=== PATIENT | male | born 1955 | race African-American/Black ===

== ENCOUNTER 2017-12-29 12:43 | Emergency (ER) | payer OTHER ==
[2017-12-29] MEDS ORDERED: NORMAL SALINE 1000 ML 1,000 ML IV ONE ×2 (13:51→15:11)
--- NOTE | 2017-12-29 14:08 | ER Document Report ---
ED Blood Sugar Problem - General Chief Complaint: High Blood Sugar Stated Complaint: BLOOD SUGAR ISSUE Time Seen by Provider: 12/29/17 13:51 Information source: Patient Notes: Patient is a 62-year-old male who presents today stating that he has been out of his insulin for around 1 week. He states that he has had some lightheadedness and dizziness over this week. He denies any fevers or vomiting. He denies any chest pain or shortness of breath. Denies any weakness or numbness to the arms or legs. TRAVEL OUTSIDE OF THE [place] IN LAST 30 DAYS: No - HPI Onset: This morning - See above Onset/Duration: Gradual Quality of pain: No pain Severity: Mild Pain Level: Denies Associated symptoms: Other - See above Similar symptoms previously: No Recently seen / treated by doctor: No - Related Data Allergies/Adverse Reactions: No Known Allergies Allergy (Unverified 12/29/17 12:52) Past Medical History - Social History Smoking Status: Unknown if Ever Smoked Cigarette use (# per day): No Chew tobacco use (# tins/day): No Smoking Education Provided: No Family History: Reviewed & Not Pertinent Review of Systems - Review of Systems Constitutional: denies: Fever EENT: denies: Eye discharge, Blurred vision, Nose discharge Cardiovascular: denies: Chest pain, Palpitations Respiratory: denies: Short of breath Gastrointestinal: denies: Vomiting Genitourinary: denies: Dysuria Musculoskeletal: denies: Leg swelling Skin: Other - no hives. denies: Rash Neurological/Psychological: Other - no slurred speech -: Yes All other systems reviewed and negative Physical Exam - Vital signs Vitals: Temp Pulse Resp BP Pulse Ox 98.2 F 85 18 131/69 H 98 12/29/17 12:57 12/29/17 12:57 12/29/17 12:57 12/29/17 12:57 12/29/17 12:57 Notes: Reviewed vital signs and nursing note as charted by RN. CONSTITUTIONAL: Alert and oriented and responds appropriately to questions. Well -appearing; well-nourished HEAD: Normocephalic; atraumatic EYES: PERRL ENT: Normal nose; no rhinorrhea; moist mucous membranes; pharynx without lesions noted NECK: Supple without meningismus; non-tender CARD: Regular rate and rhythm; no murmurs RESP: Normal chest excursion without splinting or tachypnea; breath sounds clear and equal bilaterally ABD/GI: Normal bowel sounds; non-distended; soft, non-tender BACK: The back appears normal and is non-tender to palpation EXT: Normal ROM in all joints; non-tender to palpation; no edema SKIN: No acute lesions noted NEURO: CN 2-12 intact; 5/5 bilateral upper and lower extremity strength with sensation intact to light touch; normal cerebellar motion PSYCH: The patient's mood and manner are appropriate. Grooming and personal hygiene are appropriate. Course - Re-evaluation Re-evalutation: 12/29/17 14:08 Given the history and physical examination I will order basic labs, electrolytes , venous blood gas, provide a liter of fluid. Vital signs are stable and the patient has no focal neurological deficits. 12/29/17 15:12 Labs as recorded. Normal anion gap. Elevated glucose. Patient appears to have a low white blood cell count with a neutrophil absolute count of 1.5. This does not appear to be different than the laboratory values drawn previously around 7 years ago. Patient still denies any pain, weakness or numbness. 12/29/17 17:04 Patient's labs as recorded. Repeat Accu-Chek as recorded. Patient denies any lightheadedness or dizziness at this time. I have provided a small dose of insulin here in the department. I have had social work see and talk to the patient and the patient states that he is able to be seen by the [facility] care [facility] tomorrow. He states that he would be able to get his insulin at that time. [facility] but I believe that this is a reasonable plan. Patient will be discharged home with strict return precautions. - Vital Signs Vital signs: Temp Pulse Resp BP Pulse Ox 98.2 F 85 18 131/69 H 98 12/29/17 12:57 12/29/17 12:57 12/29/17 12:57 12/29/17 12:57 12/29/17 12:57 - Laboratory Result Diagrams: 12/29/17 14:00 12/29/17 14:00 Laboratory results interpreted by me: 12/29/17 12/29/17 14:00 14:00 WBC 2.7 L Absolute Neutrophils 1.5 L Sodium 134.5 L Chloride 94 L Glucose 481 H* Discharge - Discharge Clinical Impression: Hyperglycemia Condition: Good Disposition: HOME, SELF-CARE Additional Instructions: Please make sure that you stay away from very sugary foods as we have discussed. Please follow-up tomorrow at the [facility]. Return here if you are not able to be seen by the [facility] clinic. Come back immediately with any lightheadedness, dizziness, chest pain, weakness or numbness, or any other acute problems. Referrals: PILAR CAMPBELL MD [Primary Care Provider] - Follow up as needed
[2017-12-29 14:34] LABS: ABSOLUTE MONOCYTES (AUTO) 0.2 10^3/uL (0.1-1.4); ABSOLUTE NEUT (AUTO) 1.5 10^3/uL (1.7-8.2); BASOPHILS % (AUTO) 0.7 % (0-2); EOSINOPHILS % (AUTO) 0.5 % (0-6); HEMATOCRIT 44.6 % (37.9-51.0); HEMOGLOBIN 15.1 g/dL (13.5-17.0); LYMPHOCYTES % (AUTO) 37.2 % (13-45); MEAN CORPUSCULAR HEMOGLOBIN 30.7 pg (27.0-33.4); MEAN CORPUSCULAR VOLUME 91 fl (80-97); MONOCYTES % (AUTO) 5.9 % (3-13); PLATELET COUNT 258 10^3/uL (150-450); RED BLOOD COUNT 4.92 10^6/uL (4.35-5.55); RED CELL DISTRIBUTION WIDTH 12.1 % (11.5-14.0); SEGMENTED NEUTROPHILS % (AUTO) 55.7 % (42-78); TOTAL CELLS COUNTED % (AUTO) 100 %; WHITE BLOOD COUNT 2.7 10^3/uL (4.0-10.5)
[2017-12-29 14:41] LABS: VENOUS BLOOD BASE EXCESS -3.3 mmol/L; VENOUS BLOOD HCO3 23.5 mmol/L (20-32); VENOUS BLOOD PCO2 47.4 mmHg (35-63); VENOUS BLOOD PH 7.31 (7.30-7.42)
[2017-12-29 15:00] LABS: ANION GAP 12 (5-19); BLOOD UREA NITROGEN 10 mg/dL (7-20); CALCIUM 9.2 mg/dL (8.4-10.2); CARBON DIOXIDE 29 mmol/L (22-30); CHLORIDE 94 mmol/L (98-107); POTASSIUM 4.4 mmol/L (3.6-5.0); SODIUM 134.5 mmol/L (137-145)
[2017-12-29 15:10] LABS: GLUCOSE 481 mg/dL (75-110)
[2017-12-29] MEDS ORDERED: INSULIN REG, HUMAN 100 UNIT/ML 3 ML VIAL (PYX) IV ONE (15:11)
[2017-12-29 17:40] VITALS: BP 139/83
== END 2017-12-29 17:41 | disposition home or self-care (01) ==
LOC: ER 12:43
DX: R73.9 Hyperglycemia, unspecified (principal); R42 Dizziness and giddiness; Z79.4 Long term (current) use of insulin
CPT/HCPCS: 99285; 96360; 36415; 82962; 85025; 80048; 82803; J1815; J7030; 96361

== ENCOUNTER 2017-12-29 17:55 | Observation (INO) | payer OTHER ==
--- NOTE | 2017-12-29 18:19 | ER Document Report ---
ED General - General Stated Complaint: SYNCOPAL EPISODE Time Seen by Provider: 12/29/17 18:04 Information source: Patient Notes: Patient is a 62-year-old male that was recently discharged from this facility after the patient presented with an elevated blood glucose after being out of his insulin medications for around 1 week. Patient states he was waiting for his ride outside in the grass when he "passed out". Patient denies any headache , neck pain, chest pain, abdominal pain, weakness or numbness. Patient had no complaints of similar symptoms on the prior visit. Patient states he feels "back to normal". TRAVEL OUTSIDE OF THE [place] IN LAST 30 DAYS: No - HPI Onset: Other - See above Onset/Duration: Sudden Quality of pain: No pain Severity: Mild Associated symptoms: Other - See above Exacerbated by: Denies Relieved by: Denies Similar symptoms previously: No Recently seen / treated by doctor: Yes - Related Data Allergies/Adverse Reactions: No Known Allergies Allergy (Unverified 12/29/17 12:52) Past Medical History - Social History Smoking Status: Unknown if Ever Smoked Family History: Reviewed & Not Pertinent Endocrine Medical History: Reports: Hx Diabetes Mellitus Type 2 Renal/ Medical History: Denies: Hx Peritoneal Dialysis Review of Systems - Review of Systems Constitutional: denies: Fever EENT: denies: Eye discharge, Nose discharge Respiratory: denies: Short of breath Gastrointestinal: denies: Vomiting Genitourinary: denies: Dysuria Musculoskeletal: denies: Leg swelling Skin: Other - no hives. denies: Rash Neurological/Psychological: Other - no slurred speech -: Yes All other systems reviewed and negative Physical Exam - Vital signs Notes: Reviewed vital signs and nursing note as charted by RN. CONSTITUTIONAL: Alert and oriented and responds appropriately to questions. Well -appearing; well-nourished HEAD: Normocephalic; atraumatic EYES: PERRL; full extraocular range of motion ENT: Normal nose; no rhinorrhea; moist mucous membranes; pharynx without lesions noted NECK: Supple without meningismus; non-tender; no carotid bruits; no cervical lymphadenopathy, no masses CARD: Regular rate and rhythm; no murmurs; symmetric distal pulses RESP: Normal chest excursion without splinting or tachypnea; breath sounds clear and equal bilaterally ABD/GI: Normal bowel sounds; non-distended; soft, non-tender; no abdominal bruits; no palpable organomegaly or masses BACK: The back appears normal and is non-tender to palpation EXT: Normal ROM in all joints; non-tender to palpation; no edema SKIN: No acute lesions noted NEURO: CN 2-12 intact; 5/5 bilateral upper and lower extremity strength with sensation intact to light touch. No nystagmus. Normal finger to nose bilaterally PSYCH: The patient's mood and manner are appropriate. Grooming and personal hygiene are appropriate. Course - Re-evaluation Re-evalutation: 12/29/17 18:19 Given the above history and physical examination I will order CT scan of the head as well as an EKG and place the patient on the monitor. I have ordered a troponin level and orthostatics. Patient had a complete laboratory profile very recently and I do not believe the basic labs and chemistry need to be reordered again at this time. 12/29/17 18:25 On reexamination of the patient the patient does state he felt some "vertigo- like symptoms". He states he did not lose consciousness outside which is felt to the ground. He denies any tinnitus, blurry vision, or headache. EKG shows a heart of 59, normal sinus rhythm, normal axis, no ST elevation or depression. 12/29/17 18:39 CT scan of the head shows no acute abnormalities. Troponin and orthostatics are pending. Patient still denies any symptoms at this time. Discharge - Discharge Clinical Impression: Hyperglycemia Syncope Qualifiers: Syncope type: unspecified Qualified Code(s): R55 - Syncope and collapse Condition: Fair Disposition: ADMITTED OBSERVATION Admitting Provider: Hospitalist Unit Admitted: Telemetry Referrals: PILAR CAMPBELL MD [Primary Care Provider] - Follow up as needed
--- NOTE | 2017-12-29 18:25 | RADIOLOGY REPORT (SQ) ---
EXAM DESCRIPTION: CT HEAD WITHOUT COMPLETED DATE/TIME: 12/29/2017 6:14 pm REASON FOR STUDY: syncopal episode COMPARISON: None. TECHNIQUE: Axial images acquired through the brain without intravenous contrast. Images reviewed wi th bone, brain and subdural windows. Images stored on PACS. All CT scanners at this facility use dose modulation, iterative reconstruction, and/or weight based d osing when appropriate to reduce radiation dose to as low as reasonably achievable (ALARA). [facility]: Dose Right [facility]: CareDose [facility]: Dose Right [facility]: Teradose 4D [facility]: Smart [employer] RADIATION DOSE: CT Rad equipment meets quality standard of care and radiation dose reduction techniq ues were employed. CTDIvol: 53.2 mGy. DLP: 1017 mGy-cm. mGy. LIMITATIONS: None. FINDINGS: VENTRICLES: Normal size and contour. CEREBRUM: No masses. No hemorrhage. No midline shift. No evidence for acute infarction. Normal gra y/white matter differentiation. No areas of low density in the white matter. CEREBELLUM: No masses. No hemorrhage. No alteration of density. No evidence for acute infarction. EXTRAAXIAL SPACES: No fluid collections. No masses. ORBITS AND GLOBE: No intra- or extraconal masses. Normal contour of globe without masses. CALVARIUM: No fracture. PARANASAL SINUSES: No fluid or mucosal thickening. SOFT TISSUES: No mass or hematoma. OTHER: No other significant finding. IMPRESSION: No significant intracranial abnormalities were identified. Findings as noted above. EVIDENCE OF ACUTE STROKE: NO. COMMENT: Quality ID # [id number]: Final reports with documentation of one or more dose reduction techniques (e.g., Automated exposure control, adjustment of the mA and/or kV according to patient size, use of iterative reconstruction technique) TECHNICAL DOCUMENTATION: JOB ID: [id number] [employer]- All Rights Reserved Reading location - IP/workstation name: [email or web address]
[2017-12-29] MEDS ORDERED: ACETAMINOPHEN 325 MG TABLET PO PRN (19:26)
[2017-12-29] MEDS ORDERED: DEXTROSE 50%-WATER 25 GM/50 ML DISP.SYRIN IV PRN ×2 (19:26)
[2017-12-29] MEDS ORDERED: GLUCAGON,HUMAN RECOMB 1 MG INJ IM PRN (19:26)
[2017-12-29] MEDS ORDERED: DEXTROSE 40% GEL 15 GM TUBE PO PRN ×2 (19:26)
[2017-12-29] MEDS ORDERED: MAGNESIUM HYDROXIDE SUSP 30 ML UDCUP PO PRN (19:26)
--- NOTE | 2017-12-29 20:11 | EKG REPORT ---
SEVERITY:- NORMAL ECG - SINUS RHYTHM : Confirmed by: Anay Levine 29-Dec-2017 20:10:28
--- NOTE | 2017-12-29 22:00 | RADIOLOGY REPORT (SQ) ---
EXAM DESCRIPTION: MR BRAIN WITHOUT IV CONTRAST COMPLETED DATE/TME: 12/29/2017 00:00 CLINICAL HISTORY: 62 years, Male, syncope COMPARISON: EXAM DESCRIPTION: CLINICAL HISTORY: syncope COMPARISON: None TECHNIQUE: Multiplanar multisequence imaging of the brain including the intravenous administration of contrast. FINDINGS: No acute ischemia. There is no evidence of acute mass, mass effect, midline shift or hemorrhage. No focal abnormal extra-axial fluid collection is seen. The ventricles, basal cisterns and extra-axial fluid spaces are normal in size and configuration. Brain parenchymal signal is normal. IMPRESSION: No acute abnormalities. TECHNIQUE: Images stored on PACS. LIMITATIONS: None. FINDINGS: IMPRESSION: 2010 [facility] [employer]- All Rights Reserved
[2017-12-29] MEDS ORDERED: INSULIN GLARGINE,HUM.REC.ANLOG 1,000 UNIT/10 ML UNIT SUBCUT ONE (23:00)
[2017-12-29] MEDS: HEPARIN SOD (PORCINE) 5,000 UNIT/ML 1 ML SYRINGE SUBCUT SCH (23:04)
[2017-12-29] MEDS: ATORVASTATIN CALCIUM 80 MG TABLET PO SCH (23:04)
[2017-12-30 01:09] LABS: CREATINE KINASE MB 0.84 ng/mL (<4.55)
[2017-12-30 01:15] LABS: TROPONIN I < 0.012 ng/mL
--- NOTE | 2017-12-30 03:32 | PDOC H&P ---
History of Present Illness Admission Date/PCP: 12/29/17 19:35 PILAR CAMPBELL MD Patient complains of: Syncope History of Present Illness: JAE DEVI is a 62 year old male with past medical history of insulin-dependent diabetes, dyslipidemia and GERD. Patient presents to the emergency room earlier in the day with complaints of dj vu and uncontrolled hyperglycemia after running out of insulin. He receives insulin for blood sugar of 480 reducing it to 280 without evidence of dehydration or acidosis he is discharged. Upon ambulating from the hospital campus he has a sensation of dj vu prompting him to sit up on the ground with an sensation of weakness. He denies blackout, loss of consciousness, headache, focal weakness, difficulty with speech, nausea vomiting, diaphoresis, palpitations, chest pain or shortness of breath. In the emergency room he has an unremarkable workup but he is referred to the hospitalist for observation. Patient denies recent changes in medications. Past Medical History Cardiac Medical History: Reports: Hyperlipidema Endocrine Medical History: Reports: Diabetes Mellitus Type 2 GI Medical History: Reports: Gastroesophageal Reflux Disease Social History Information Source: Patient Smoking Status: Current Every Day Smoker Cigarettes Packs Per Day: 0.1 Number of Years Smokin Last Time Smoked: 12/29/17 Frequency of Alcohol Use: Social Hx Recreational Drug Use: Yes Drugs: Marijuana Hx Prescription Drug Abuse: No - Advance Directive Resuscitation Status: Full Code Family History Family History: Hypertension. denies: CAD, CVA Parental Family History Reviewed: Yes Children Family History Reviewed: Yes Sibling(s) Family History Reviewed.: Yes Medication/Allergy Home Medications: Insulin Aspart [Novolog Insulin 100 Unit/1 ml 10 ml] 10 unit SUBCUT AC 12/29/17 Insulin Glargine,Hum.rec.anlog [Lantus Insulin Inj 300 Unit/3 ml Pen] 20 unit SUBCUT QHS 12/29/17 Omeprazole Magnesium [Prilosec Otc] 10 mg PO DAILY 12/29/17 Rosuvastatin Calcium [Crestor 10 mg Tablet] 10 mg PO DAILY 12/29/17 Allergies/Adverse Reactions: No Known Allergies Allergy (Unverified 12/29/17 12:52) Review of Systems Constitutional: ABSENT: chills, fever(s), headache(s), weight gain, weight loss Eyes: ABSENT: visual disturbances Ears: ABSENT: hearing changes Cardiovascular: ABSENT: chest pain, dyspnea on exertion, edema, orthropnea, palpitations Respiratory: ABSENT: cough, hemoptysis Gastrointestinal: ABSENT: abdominal pain, constipation, diarrhea, hematemesis, hematochezia, nausea, vomiting Genitourinary: ABSENT: dysuria, hematuria Musculoskeletal: ABSENT: joint swelling Integumentary: ABSENT: rash, wounds Neurological: ABSENT: abnormal gait, abnormal speech, confusion, dizziness, focal weakness, syncope Psychiatric: ABSENT: anxiety, depression, homidical ideation, suicidal ideation Endocrine: ABSENT: cold intolerance, heat intolerance, polydipsia, polyuria Hematologic/Lymphatic: ABSENT: easy bleeding, easy bruising Physical Exam Vital Signs: Temp Pulse Resp BP Pulse Ox 97.8 F 61 20 119/54 L 99 12/29/17 23:53 12/30/17 02:00 12/30/17 00:00 12/30/17 00:00 12/30/17 00:00 Intake & Output 12/28/17 12/29/17 12/30/17 11:59 11:59 11:59 Output Total 0 Balance 0 Weight 65.771 kg General appearance: PRESENT: no acute distress, well-developed, well-nourished Head exam: PRESENT: atraumatic, normocephalic Eye exam: PRESENT: conjunctiva pink, EOMI, PERRLA. ABSENT: scleral icterus Ear exam: PRESENT: normal external ear exam Mouth exam: PRESENT: moist, tongue midline Neck exam: ABSENT: carotid bruit, JVD, lymphadenopathy, thyromegaly Respiratory exam: PRESENT: clear to auscultation brendon. ABSENT: rales, rhonchi, wheezes Cardiovascular exam: PRESENT: RRR. ABSENT: diastolic murmur, rubs, systolic murmur Pulses: PRESENT: normal dorsalis pedis pul Vascular exam: PRESENT: normal capillary refill GI/Abdominal exam: PRESENT: normal bowel sounds, soft. ABSENT: distended, guarding, mass, organolmegaly, rebound, tenderness Rectal exam: PRESENT: deferred Extremities exam: PRESENT: full ROM. ABSENT: calf tenderness, clubbing, pedal edema Neurological exam: PRESENT: alert, awake, oriented to person, oriented to place , oriented to time, oriented to situation, CN II-XII grossly intact. ABSENT: motor sensory deficit Psychiatric exam: PRESENT: appropriate affect, normal mood. ABSENT: homicidal ideation, suicidal ideation Skin exam: PRESENT: dry, intact, warm. ABSENT: cyanosis, rash Results Laboratory Results: 12/30/17 12/30/17 00:34 00:34 Creatine Kinase 31 L CK-MB (CK-2) 0.84 Troponin I < 0.012 Impressions: Head CT 12/29/17 00:00 IMPRESSION: No significant intracranial abnormalities were identified. Findings as noted above. EVIDENCE OF ACUTE STROKE: NO. Head MRI 12/29/17 00:00 IMPRESSION: No acute abnormalities. TECHNIQUE: Images stored on PACS. LIMITATIONS: None. FINDINGS: IMPRESSION: 2010 [employer]- All Rights Reserved Assessment & Plan - Diagnosis (1) Pre-syncope Is this a current diagnosis for this admission?: Yes Plan: TIA workup initiated by the emergency room physician, suspect adverse effect of medication or recreational drug, refusing urine drug screen. Follow-up MRI, carotid Doppler, lipid profile, urine drug screen (2) Hyperglycemia Is this a current diagnosis for this admission?: Yes Plan: Humalog sliding scale coverage q. before meals - Time Time Spent: 30 to 50 Minutes
[2017-12-30] MEDS ORDERED: HALOPERIDOL LACTATE INJ 5 MG/1 ML VIAL IV ONE (03:55)
[2017-12-30] MEDS: HEPARIN SOD (PORCINE) 5,000 UNIT/ML 1 ML SYRINGE SUBCUT SCH ×3 (05:35→21:22)
[2017-12-30 05:41] LABS: URINE AMPHETAMINES SCREEN NEGATIVE; URINE BARBITURATES SCREEN NEGATIVE; URINE BENZODIAZEPINES SCREEN NEGATIVE; URINE COCAINE SCREEN NEGATIVE; URINE METHADONE SCREEN NEGATIVE
[2017-12-30 05:57] LABS: URINE PHENCYCLIDINE SCREEN NEGATIVE
[2017-12-30] MEDS ORDERED: HALOPERIDOL LACTATE INJ 5 MG/1 ML VIAL IV PRN (06:36)
[2017-12-30 07:10] LABS: ABSOLUTE EOSINOPHILS # (AUTO) 0.1 10^3/uL (0.0-0.6); ABSOLUTE LYMPHOCYTES (AUTO) 1.5 10^3/uL (0.5-4.7); ABSOLUTE MONOCYTES (AUTO) 0.2 10^3/uL (0.1-1.4); ABSOLUTE NEUT (AUTO) 1.1 10^3/uL (1.7-8.2); BASOPHILS % (AUTO) 0.8 % (0-2); HEMATOCRIT 39.1 % (37.9-51.0); HEMOGLOBIN 13.6 g/dL (13.5-17.0); LYMPHOCYTES % (AUTO) 53.8 % (13-45); MEAN CORPUSCULAR HEMOGLOBIN 30.9 pg (27.0-33.4); MEAN CORPUSCULAR HGB CONC 34.9 g/dL (32.0-36.0); MEAN CORPUSCULAR VOLUME 89 fl (80-97); MONOCYTES % (AUTO) 6.1 % (3-13); PLATELET COUNT 250 10^3/uL (150-450); RED BLOOD COUNT 4.41 10^6/uL (4.35-5.55); RED CELL DISTRIBUTION WIDTH 12.1 % (11.5-14.0); SEGMENTED NEUTROPHILS % (AUTO) 37.3 % (42-78); TOTAL CELLS COUNTED % (AUTO) 100 %; WHITE BLOOD COUNT 2.8 10^3/uL (4.0-10.5)
[2017-12-30 07:30] LABS: ALANINE AMINOTRANSFERASE 26 U/L (21-72); ALBUMIN 2.9 g/dL (3.5-5.0); ALKALINE PHOSPHATASE 80 U/L (38-126); ANION GAP 7 (5-19); ASPARTATE AMINO TRANSFERASE 36 U/L (17-59); BILIRUBIN,DIRECT 0.2 mg/dL (0.0-0.4); BILIRUBIN,TOTAL 0.3 mg/dL (0.2-1.3); BLOOD UREA NITROGEN 8 mg/dL (7-20); CARBON DIOXIDE 27 mmol/L (22-30); CHLORIDE 104 mmol/L (98-107); CHOLESTEROL 164.68 mg/dL (0-200); GLUCOSE 239 mg/dL (75-110); TOTAL PROTEIN 5.4 g/dL (6.3-8.2); TRIGLYCERIDES 147 mg/dL (<150)
[2017-12-30 07:43] LABS: URINE MARIJUANA (THC) SCREEN UNCONFIRMED POSITIVE
[2017-12-30 07:44] LABS: DIRECT LDL 111 mg/dL (<100)
[2017-12-30 07:45] LABS: CREATINE KINASE MB 0.87 ng/mL (<4.55)
[2017-12-30 07:50] LABS: POTASSIUM 3.9 mmol/L (3.6-5.0); TROPONIN I < 0.012 ng/mL
--- NOTE | 2017-12-30 09:59 | EKG REPORT ---
SEVERITY:- ABNORMAL ECG - SINUS RHYTHM LEFT VENTRICULAR HYPERTROPHY ST ELEVATION SUGGESTS PERICARDITIS VS EARLY REPOL CHANGES : Confirmed by: Anay Levine 30-Dec-2017 09:58:50
[2017-12-30] MEDS: INSULIN LISPRO 100 UNIT/ML 3 ML VIAL SUBCUT PRN ×3 (10:32→17:45)
--- NOTE | 2017-12-30 14:59 | PDOC PROGRESS REPORT ---
Subjective Progress Note for:: 12/30/17 Subjective:: Patient is insulin-dependent diabetic. Apparently he ran out of insulin and developed hypoglycemia. He was admitted because of these vague episodes of "dj vu" and frequent falling. He never loses consciousness and describe it as if he sees a car question and cannot do anything about it. And he is aware of his surrounding the whole time? During my interview with him, he just yelled "I am having 1 of these episodes now". He could still answer my questions. This happened during my neuro exam when I asked him to raise his left leg which he could not do because he was "having an episode". There is no rigidity or fasciculations or seizure activity. Babinski test is normal. This lasted a few seconds and he was completely normal after that. Reason For Visit: SYNCOPE HYPERGLYCEMIA Physical Exam Vital Signs: Temp Pulse Resp BP Pulse Ox 97.7 F 68 17 116/63 99 12/30/17 11:22 12/30/17 11:22 12/30/17 11:22 12/30/17 11:22 12/30/17 11:22 Intake & Output 12/29/17 12/30/17 12/31/17 06:59 06:59 06:59 Intake Total 300 Output Total 175 Balance -175 300 Weight 148 lb 2.41 oz General appearance: PRESENT: no acute distress, cooperative Head exam: ABSENT: atraumatic, normocephalic Eye exam: PRESENT: EOMI, PERRLA. ABSENT: conjunctival injection, nystagmus, scleral icterus Ear exam: ABSENT: bleeding, drainage Throat exam: ABSENT: post pharyngeal erythema Neck exam: ABSENT: meningismus, tenderness, tracheostomy Respiratory exam: PRESENT: clear to auscultation brendon. ABSENT: accessory muscle use Cardiovascular exam: PRESENT: RRR. ABSENT: diastolic murmur, systolic murmur Pulses: PRESENT: normal radial pulses GI/Abdominal exam: PRESENT: normal bowel sounds, soft. ABSENT: ascites, tenderness Rectal exam: PRESENT: deferred Extremities exam: ABSENT: calf tenderness, joint swelling, pedal edema Musculoskeletal exam: PRESENT: full ROM, normal inspection. ABSENT: deformity Neurological exam: PRESENT: alert, altered, awake, oriented to person, oriented to place, oriented to time, oriented to situation, reflexes normal, CN II-XII grossly intact. ABSENT: motor sensory deficit, aphasic Psychiatric exam: ABSENT: homicidal ideation, suicidal ideation Skin exam: PRESENT: normal color. ABSENT: cyanosis, erythema, jaundice, petechiae Results Laboratory Results: 12/30/17 06:37 12/30/17 06:37 12/30/17 12/30/17 06:37 06:37 WBC 2.8 L RBC 4.41 Hgb 13.6 Hct 39.1 MCV 89 MCH 30.9 MCHC 34.9 RDW 12.1 Plt Count 250 Seg Neutrophils % 37.3 L Lymphocytes % 53.8 H Monocytes % 6.1 Eosinophils % 2.0 Basophils % 0.8 Absolute Neutrophils 1.1 L Absolute Lymphocytes 1.5 Absolute Monocytes 0.2 Absolute Eosinophils 0.1 Absolute Basophils 0.0 Sodium 138.0 Potassium 3.9 Chloride 104 Carbon Dioxide 27 Anion Gap 7 BUN 8 Creatinine 0.62 Est GFR ( Amer) > 60 Est GFR (Non-Af Amer) > 60 Glucose 239 H Calcium 9.0 Total Bilirubin 0.3 AST 36 ALT 26 Alkaline Phosphatase 80 Total Protein 5.4 L Albumin 2.9 L Triglycerides 147 Cholesterol 164.68 LDL Cholesterol Direct 111 H VLDL Cholesterol 29.0 HDL Cholesterol 52 12/30/17 12/30/17 12/30/17 00:34 00:34 06:37 Creatine Kinase 31 L 32 L CK-MB (CK-2) 0.84 Troponin I < 0.012 12/30/17 06:37 Creatine Kinase CK-MB (CK-2) 0.87 Troponin I < 0.012 Impressions: Head CT 12/29/17 00:00 IMPRESSION: No significant intracranial abnormalities were identified. Findings as noted above. EVIDENCE OF ACUTE STROKE: NO. Head MRI 12/29/17 00:00 IMPRESSION: No acute abnormalities. TECHNIQUE: Images stored on PACS. LIMITATIONS: None. FINDINGS: IMPRESSION: 2010 [email or web address]- All Rights Reserved Assessment & Plan - Diagnosis (1) Frequent falls Is this a current diagnosis for this admission?: Yes Plan: Consult physical therapy (2) Pseudoseizure Is this a current diagnosis for this admission?: Yes Plan: Ordered EEG CT scan of the brain and MRI brain are unremarkable Echocardiogram and carotid ultrasound are pending (3) Hyperglycemia Is this a current diagnosis for this admission?: Yes Plan: Increase Lantus to 25 units (4) Dyslipidemia Is this a current diagnosis for this admission?: Yes Plan: Continue statin (5) GERD (gastroesophageal reflux disease) Is this a current diagnosis for this admission?: Yes Plan: Continue PPI
[2017-12-30] MEDS ORDERED: OMEPRAZOLE MAGNESIUM 10 MG PO SCH (15:00)
[2017-12-30] MEDS: ATORVASTATIN CALCIUM 80 MG TABLET PO SCH (21:23)
[2017-12-30] MEDS ORDERED: INSULIN GLARGINE,HUM.REC.ANLOG 300 UNIT/3 ML INSULN.PEN SUBCUT SCH ×2 (22:00)
--- NOTE | 2017-12-30 22:23 | RADIOLOGY REPORT (SQ) ---
EXAM DESCRIPTION: US CAROTID DOPPLER BILATERAL COMPLETED DATE/TME: 12/30/2017 00:00 CLINICAL HISTORY: 62 years, Male, suncope COMPARISON: None. TECHNIQUE: Transverse and longitudinal sonographic images of the cervical portions of the carotid arteries. Doppler and spectral analysis with color flow was utilized. LIMITATIONS: None. FINDINGS: Imaging over the carotid arteries demonstrates mild atheromatous plaque formation bilaterally. No visible areas of severe stenosis. Doppler and spectral analysis with color flow demonstrates normal antegrade flow in the vertebral arteries bilaterally. Normal biphasic and triphasic waveforms bilaterally. Velocities are as follows (in peak systolic velocity): Right proximal CCA: 127 cm/s. Right distal CCA: 103 cm/s. Right proximal ICA: 55 cm/s. Right distal ICA: 124 cm/s. Right ICA to CCA ratio: 1.2. Right ECA: 107 cm/s. Right vertebral artery: 51 cm/s. Left proximal CCA: 109 cm/s. Left distal CCA: 124 cm/s. Left proximal ICA 94 cm/s. Left distal ICA: 106 cm/s. Left ICA to CCA ratio: 0.9. Left ECA: 110 cm/s. Left vertebral artery: 54 cm/s. IMPRESSION: Mild visible atheromatous plaque bilaterally. No sonographic evidence for severe stenosis. Normal ICA to CCA ratios bilaterally. 2011 [employer]- All Rights Reserved
[2017-12-31] MEDS ORDERED: LANSOPRAZOLE 15 MG TAB.RAP.DR PO SCH (06:00)
[2017-12-31] MEDS: HEPARIN SOD (PORCINE) 5,000 UNIT/ML 1 ML SYRINGE SUBCUT SCH ×2 (06:38→14:01)
--- NOTE | 2017-12-31 10:54 | XCELERA REPORT ---
[address] [address] Transthoracic Echocardiogram Report Name: JAE DEVI Age: 62 yrs Gender: Male : 1955 Patient Status: Inpatient Patient Location: [address] [place] [address] Study Date: 12/30/2017 05:24 PM Height: 73 in Weight: 145 lb BSA: 1.9 m2 Procedure: A complete two-dimensional transthoracic echocardiogram was performed (2D, M-mode, spectral and color flow Doppler). The study was technically adequate with some images being suboptimal in quality. Reason For Study: syncope Ordering Physician: JUANA MULTANI Performed By: Scarlet Rivera Interpretation Summary The left ventricular ejection fraction is normal. There is borderline concentric left ventricular hypertrophy. The left ventricle is grossly normal size. Doppler measurements suggest impaired left ventricular relaxation, which is associated with grade I/IV or mild diastolic dysfunction Wall motion cannot be accurately commented on, but no definite regional wall motion abnormalities noted. Borderline right ventricular enlargement. The right ventricular systolic function is normal. The left atrial size is normal. The right atrium is normal in size There is a trace amount of mitral regurgitation There is no mitral valve stenosis. No aortic regurgitation is present. There is no aortic valve stenosis There is a trace or physiologic amount of tricuspid regurgitation Tricuspid regurgitation jet envelope not well defined to measure RV systolic pressure accurately. The aortic root is not well visualized but is probably normal size. The inferior vena cava appeared normal and decreased > 50% with respiration (RAP 5-10 mmHg) There is no pericardial effusion. MMode/2D Measurements & Calculations RVDd: 2.2 cm LVIDd: 4.5 cm FS: 32.6 % Ao root diam: 3.1 cm IVSd: 0.99 cm LVIDs: 3.0 cm EDV(Teich): 92.2 ml Ao root area: 7.6 cm2 LVPWd: 1.0 cm ESV(Teich): 35.9 ml LA dimension: 2.6 cm EF(Teich): 61.1 % Doppler Measurements & Calculations MV E max asad: MV P1/2t max asad: Ao V2 max: LV V1 max P.9 cm/sec 96.0 cm/sec 116.4 cm/sec 4.6 mmHg MV A max asad: MV P1/2t: 63.2 msec Ao max PG: LV V1 max: 77.0 cm/sec MVA(P1/2t): 3.5 cm2 5.4 mmHg 107.6 cm/sec MV E/A: 1.1 MV dec slope: 445.2 cm/sec2 MV dec time: 0.25 sec TV V2 max: PA V2 max: TR max asad: MV P1/2t-pr_phl: 90.9 cm/sec 86.9 cm/sec 219.1 cm/sec 63.2 msec TV max PG: PA max P.0 mmHg TR max P.3 mmHg 19.2 mmHg Left Ventricle The left ventricle is grossly normal size. There is borderline concentric left ventricular hypertrophy. The left ventricular ejection fraction is normal. Doppler measurements suggest impaired left ventricular relaxation, which is associated with grade I/IV or mild diastolic dysfunction. Wall motion cannot be accurately commented on, but no definite regional wall motion abnormalities noted. Right Ventricle Borderline right ventricular enlargement. There is normal right ventricular wall thickness. The right ventricular systolic function is normal. Atria The right atrium is normal in size. The left atrial size is normal. Interarterial septum not well visualized and not well dopplered. Cannot comment on ASD/PFO presence. Mitral Valve The mitral valve is grossly normal. There is no mitral valve stenosis. There is a trace amount of mitral regurgitation. Aortic Valve The aortic valve is grossly normal. There is no aortic valve stenosis. No aortic regurgitation is present. Tricuspid Valve The tricuspid valve is not well visualized, but is grossly normal. There is no tricuspid stenosis. There is a trace or physiologic amount of tricuspid regurgitation. Tricuspid regurgitation jet envelope not well defined to measure RV systolic pressure accurately. Pulmonic Valve The pulmonic valve is not well visualized. Great Vessels The aortic root is not well visualized but is probably normal size. The inferior vena cava appeared normal and decreased > 50% with respiration (RAP 5-10 mmHg). Effusions There is no pericardial effusion. : JUANA MULTANI > Anay Levine
[2017-12-31] MEDS: INSULIN LISPRO 100 UNIT/ML 3 ML VIAL SUBCUT PRN ×2 (12:17→17:05)
[2017-12-31 12:50] VITALS: BP 115/65
--- NOTE | 2017-12-31 15:11 | EEG PRO FEE REPORT ---
EEG INTERPRETATION PATIENT NAME: JAE DEVI ROOM#: [id number] ORDER#: [id number] DATE OF STUDY: 12/30/2017 : 1955 REFERRING MD: CARLOS WOLF M.D. MEDICATIONS: Lipitor, Haldol, *------*, Lantus insulin, Tylenol, magnesium hydroxide. REPORT HISTORY: This is a 62-year-old right-handed man admitted with syncope and hyperglycemia with a history of hypercholesterolemia, type 2 diabetes, gastroesophageal reflux disease. This EEG is requested for episodes of a sensation of spinning and falling. EEG INTERPRETATION: The EEG was recorded in the awake, drowsy, and sleep states. The awake EEG is characterized by well organized background with a well developed and reactive posterior dominant rhythm of 10 Hz. The remainder of background consisted of a mix of primarily alpha with artifact in multiple channels. Drowsiness was characterized by slowing of the background rhythms. Vertex waves were seen in the midline head regions. Photic stimulation resulted in minimal driving. Hyperventilation resulted in mild generalized slowing of the background. There were no epileptiform abnormalities. The EKG showed a regular rhythm in the 50s. EEG IMPRESSION: This EEG is within normal limits for age. The EKG showed a rhythm in the 50s. INTERPRETING PHYSICIAN: ROHINI JAIN M.D. /: [id number] TT: [id number] ID: [id number] /: [id number] TD: [id number] JOB: [id number] cc:Tommy DECKER M.D. HASSAN ELHEWAN, M.D. > MTDD
--- NOTE | 2017-12-31 17:27 | PDOC DISCHARGE SUMMARY ---
General - Admit/Disc Date/PCP Admission Date/Primary Care Provider: 12/29/17 19:[facility] Discharge Date: 12/31/17 - Discharge Diagnosis (1) Frequent falls Is this a current diagnosis for this admission?: Yes (2) Pseudoseizure Is this a current diagnosis for this admission?: Yes (3) Hyperglycemia Is this a current diagnosis for this admission?: Yes (4) Dyslipidemia Is this a current diagnosis for this admission?: Yes (5) GERD (gastroesophageal reflux disease) Is this a current diagnosis for this admission?: Yes - Additional Information Resuscitation Status: Full Code Discharge Diet: Diabetic Discharge Activity: No Driving Prescriptions: Insulin Glargine,Hum.rec.anlog [Lantus Insulin 100 Unit/mL] 25 unit SUBCUT QHS # 3 insuln.pen Insulin Aspart [Novolog Flexpen] 10 unit SQ AC #3 insuln.pen Home Medications: Omeprazole Magnesium [Prilosec Otc] 10 mg PO DAILY 12/29/17 Rosuvastatin Calcium [Crestor 10 mg Tablet] 10 mg PO DAILY 12/29/17 Insulin Aspart [Novolog Flexpen] 10 unit SQ AC #3 insuln.pen 12/31/17 Insulin Glargine,Hum.rec.anlog [Lantus Insulin 100 Unit/mL] 25 unit SUBCUT QHS # 3 insuln.pen 12/31/17 History of Present Illness History of Present Illness: JAE DEVI is a 62 year old male with past medical history of insulin-dependent diabetes, dyslipidemia and GERD. Patient presents to the emergency room earlier in the day with complaints of dj vu and uncontrolled hyperglycemia after running out of insulin. He receives insulin for blood sugar of 480 reducing it to 280 without evidence of dehydration or acidosis he is discharged. Upon ambulating from the hospital campus he has a sensation of dj vu prompting him to sit up on the ground with an sensation of weakness. He denies blackout, loss of consciousness, headache, focal weakness, difficulty with speech, nausea vomiting, diaphoresis, palpitations, chest pain or shortness of breath. In the emergency room he has an unremarkable workup but he is referred to the hospitalist for observation. Patient denies recent changes in medications. Hospital Course Hospital Course: Patient is insulin-dependent diabetic. Apparently he ran out of insulin and developed hypoglycemia. He was admitted because of these vague episodes of "dj vu" and frequent falling. He never loses consciousness and describe it as if he sees a car question and cannot do anything about it. And he is aware of his surrounding the whole time? on 12/30/2017; During my interview with him, he just yelled "I am having 1 of these episodes now". He could still answer my questions. This happened during my neuro exam when I asked him to raise his left leg which he could not do because he was "having an episode". There is no rigidity or fasciculations or seizure activity. Babinski test is normal. This lasted a few seconds and he was completely normal after that. After that apparently, he had couple of these episodes again. These were noticed by the nurse and she reported that he never lost consciousness and was able to communicate during these episodes. He was evaluated by physical therapy and did very well and did not require any intervention at all. His MRI of the brain was normal, his echocardiogram shows normal EF and no valvular abnormalities, his carotid ultrasound was unremarkable, his EEG was normal. Patient can be discharged and should follow-up with primary care physician and possibly neurologist outpatient. He was advised not to drive, swim alone, go to high services without supervision or operate heavy machinery until he is evaluated by a neurologist. We did not start him on any antiepileptic medications as this looks typical for pseudoseizure but he would need to be evaluated by a neurologist and possibly undergo 24-hour EEG monitoring. Physical Exam Vital Signs: Temp Pulse Resp BP Pulse Ox 98.2 F 69 19 115/65 97 12/31/17 17:19 12/31/17 17:19 12/31/17 17:19 12/31/17 11:15 12/31/17 17:19 Intake & Output 12/30/17 12/31/17 01/01/18 06:59 06:59 06:59 Intake Total 400 236 Output Total 175 700 0 Balance -175 -300 236 Weight 148 lb 2.41 oz 160 lb 11.472 oz General appearance: PRESENT: no acute distress, cooperative Head exam: PRESENT: atraumatic, normocephalic Eye exam: PRESENT: EOMI, PERRLA. ABSENT: conjunctival injection Ear exam: ABSENT: bleeding, drainage Respiratory exam: PRESENT: clear to auscultation brendon. ABSENT: accessory muscle use Cardiovascular exam: PRESENT: RRR. ABSENT: diastolic murmur, systolic murmur GI/Abdominal exam: PRESENT: normal bowel sounds, soft. ABSENT: ascites, tenderness Extremities exam: ABSENT: pedal edema Neurological exam: PRESENT: alert, altered, awake, oriented to person, oriented to place, oriented to time, oriented to situation, reflexes normal, CN II-XII grossly intact, normal gait. ABSENT: ataxia, motor sensory deficit, aphasic Psychiatric exam: ABSENT: agitated, anxious, homicidal ideation, suicidal ideation Results Laboratory Results: 12/30/17 06:37 12/30/17 06:37 12/30/17 12/30/17 12/30/17 00:34 00:34 06:37 Creatine Kinase 31 L 32 L CK-MB (CK-2) 0.84 Troponin I < 0.012 12/30/17 06:37 Creatine Kinase CK-MB (CK-2) 0.87 Troponin I < 0.012 Impressions: Head CT 12/29/17 00:00 IMPRESSION: No significant intracranial abnormalities were identified. Findings as noted above. EVIDENCE OF ACUTE STROKE: NO. Head MRI 12/29/17 00:00 IMPRESSION: No acute abnormalities. TECHNIQUE: Images stored on PACS. LIMITATIONS: None. FINDINGS: IMPRESSION: 2010 [employer] All Rights Reserved Carotid Doppler Study 12/30/17 00:00 IMPRESSION: Mild visible atheromatous plaque bilaterally. No sonographic evidence for severe stenosis. Normal ICA to CCA ratios bilaterally. 2010 [employer] All Rights Reserved Qualifiers - * PATIENT BEING DISCHARGED WITH ANY OF THE FOLLOWING DIAGNOSIS: No
== END 2017-12-31 17:38 | disposition home or self-care (01) ==
LOC: ER 17:55 → EH 19:35 → 3S 21:46
PROVIDERS: ADMIT Internal Medicine; ATTEND Internal Medicine
PROC: 4A10X4Z Monitoring of Central Nervous Electrical Activity, External Approach (ICD-10-PCS; principal; 2017-12-30)
PROC: 3E02340 Introduction of Influenza Vaccine into Muscle, Percutaneous Approach (ICD-10-PCS; 2017-12-31)
DX: R29.6 Repeated falls (principal); F44.5 Conversion disorder with seizures or convulsions; E11.65 Type 2 diabetes mellitus with hyperglycemia; E78.5 Hyperlipidemia, unspecified; K21.9 Gastro-esophageal reflux disease without esophagitis; F17.210 Nicotine dependence, cigarettes, uncomplicated; Z79.4 Long term (current) use of insulin; Z82.49 Family history of ischemic heart disease and other diseases of the circulatory system; Z79.899 Other long term (current) drug therapy; Z23 Encounter for immunization
CPT/HCPCS: 95819 ×2; 93005 ×2; 99285; 36415 ×2; 82553 ×2; 82962 ×3; 82550 ×2; 85025; 80053; 84484 ×2; 80307; 83036; 80061; 93306; 93880; 70551; 70450; 90686; 93010 ×2; 97116; 97161; G0378 ×4; J1815 ×4; J1644 ×3; J3490 ×3